=== PATIENT | female | born 1985 | race Two or more races ===

== ENCOUNTER 2022-05-16 09:00 | Outpatient (CLI) | payer OTHER | END 2022-05-16 09:09 | disposition home or self-care (01) | LOC: RX STUDY 09:00 | DX: N96 Recurrent pregnancy loss (principal) ==

== ENCOUNTER 2022-05-23 10:05 | Outpatient (CLI) | payer OTHER | END 2022-05-23 10:11 | disposition home or self-care (01) | LOC: SONOGRAMA 10:05 | DX: N96 Recurrent pregnancy loss (principal) ==

== ENCOUNTER 2022-07-27 08:45 | Outpatient (CLI) | payer OTHER | END 2022-07-27 08:49 | disposition home or self-care (01) | LOC: RX STUDY 08:45 → SONOGRAMA 08:45 | DX: N96 Recurrent pregnancy loss (principal) ==

== ENCOUNTER 2022-11-15 09:51 | Outpatient (CLI) | payer OTHER | END 2022-11-15 10:01 | disposition home or self-care (01) | LOC: SONOGRAMA 09:51 | DX: O26.20 Pregnancy care for patient with recurrent pregnancy loss, unspecified trimester (principal); Z86.010 Personal history of colon polyps; N93.9 Abnormal uterine and vaginal bleeding, unspecified ==